=== PATIENT | male | born 1975 | race Caucasian/White ===

== ENCOUNTER 2019-04-16 12:04 | Emergency (ER) | payer OTHER, MEDICAID ==
--- NOTE | 2019-04-16 12:43 | XRAY Report ---
Reason: pain to R index finger Procedure Date: 04/16/2019 Accession Number: [id number] / [id number] Procedure: XR - Finger(s) RT CPT Code: FULL RESULT: EXAM: RIGHT INDEX FINGER RADIOGRAPHY EXAM DATE: 04/16/2019 12:29 PM. CLINICAL HISTORY: Pain R index finger. Hyperextension injury COMPARISON: None. TECHNIQUE: 3 views. FINDINGS: Bones: Normal. No fracture or bone lesion. Joints: Normal. No subluxations. Soft Tissues: Normal. No soft tissue swelling. IMPRESSION: Normal right index finger radiography. [facility]
--- NOTE | 2019-04-16 12:49 | ED Physician Documentation ---
PD HPI UPPER EXT INJURY - Stated complaint Stated Complaint: FINGER INJURY - Chief complaint Chief Complaint: Ext Problem - History obtained from History obtained from: Patient - History of Present Illness Location: Right, Finger (index) Type of injury: Twist Where injury occurred: Work Timing - onset: Yesterday Timing - duration: Days (1) Timing - details: Abrupt onset, Still present Improved by: Rest, Immobilization Worsened by: Moving, Palpating Associated symptoms: Swelling. 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 Review of Systems Constitutional: denies: Fever Respiratory: denies: Cough GI: denies: Vomiting PD PAST MEDICAL HISTORY - Past Surgical History Past Surgical History: Yes Ortho: Other HEENT: Tonsil/Adenoidectomy - Present Medications Home Medications: Ambulatory Orders Medication Instructions Recorded Confirmed Hydrocodone/Acetaminophen 1 tab PRN 12/19/14 12/19/14 [Hydrocodon-Acetaminophn 10-325] Ibuprofen 600 mg PO Q6HR PRN #20 tablet 12/19/14 predniSONE [Deltasone] 40 mg PO DAILY 5 Days tablet 12/19/14 - Allergies Allergies/Adverse Reactions: Allergies Allergy/AdvReac Type Severity Reaction Status Date / Time codeine Allergy Itching Verified 12/19/14 13:06 - Social History Does the pt smoke?: No Smoking Status: Never smoker Does the pt drink ETOH?: Yes Does the pt have substance abuse?: Yes PD ED PE NORMAL - Vitals Vital signs reviewed: Yes (hypertensive ) - General General: Alert and oriented X 3, No acute distress, Well developed/nourished - HEENT HEENT: Atraumatic, PERRL, EOMI - Respiratory Respiratory: No respiratory distress - Derm Derm: Normal color, Warm and dry, No rash - Extremities Extremities: No deformity, Other (There is swelling and point tenderness to the right index finger. The maximal swelling is over the PIP of the right index. There is reduced ROM secondary to pain. ) - Neuro Neuro: Alert and oriented X 3, bus info consultant 2-12 intact, No motor deficit, No sensory deficit, Normal speech Eye Opening: Spontaneous Motor: Obeys Commands Verbal: Oriented GCS Score: 15 - Psych Psych: Normal mood, Normal affect Results - Vitals Vitals: Vital Signs - 24 hr 04/16/19 12:17 Temperature 36.2 C L Heart Rate 72 Respiratory 16 Rate Blood Pressure 137/78 H O2 Saturation 97 Oxygen O2 Source Room air - Rads (name of study) finger Radiology: Prelim report reviewed (Impression normal right and ex finger radiography.), EMP read indepedently, See rad report PD MEDICAL DECISION MAKING - ED course Complexity details: reviewed results, re-evaluated patient, considered differential, d/w patient ED course: 43-year-old male with a sprained right index finger is placed into a volar aluminum splint and his fingers are pao taped we will place him on limited duty of his right hand for 2 weeks. Departure - Departure Disposition: 01 Home, Self Care Clinical Impression: Sprain of right index finger Qualifiers: Encounter type: initial encounter Sprain of finger site: interphalangeal joint Qualified Code(s): S63.630A - Sprain of interphalangeal joint of right index finger, initial encounter Condition: Stable Instructions: ED Sprain Finger Follow-Up: [facility] [Provider Group] Forms: Activity restrictions
[2019-04-16 13:09] VITALS: BP 132/76
== END 2019-04-16 13:08 | disposition home or self-care (01) ==
LOC: ED 12:04
DX: S63.630A Sprain of interphalangeal joint of right index finger, initial encounter (principal); X50.1XXA Overexertion from prolonged static or awkward postures, initial encounter; Y93.89 Activity, other specified; Y99.0 Civilian activity done for income or pay
CPT/HCPCS: 1040M; 73140; 99282; 99283

== ENCOUNTER 2019-04-27 14:08 | Emergency (ER) | payer OTHER, MEDICAID ==
[2019-04-27 14:17] VITALS: BP 164/93
--- NOTE | 2019-04-27 14:22 | ED Physician Documentation ---
History of Present Illness - Stated complaint Stated Complaint: R FINGER NUMBNESS - Chief complaint Chief Complaint: Ext Problem - History obtained from History obtained from: Patient - History of Present Illness Timing: Other (1 1/2 months ago on Mar 20) Pain level max: 0 Pain level now: 0 - Additonal information Additional information: This is a 43-year-old who presents for an L&I claim regarding numbness to the his right middle fingertip. Says a month and a half ago on March 20 he was moving [employer] and he noticed afterward that the very tip of his right middle finger pad was numb and it just has not gone away. He denies that there was any laceration, bruising or swelling. He does not take any prescription medications for any chronic illnesses and denies use of tobacco products. He is never been diagnosed with carpal tunnel syndrome. Denies waking up in the middle of the night in pain. Patient was here a week and a half ago for a different L&I injury to the right index finger and he asked his claim worker if he could just add this numbness onto that claim but was told that he would have to come in and file another L&I injury form. Review of Systems Musculoskeletal: denies: Extremity pain, Joint swelling Neurologic: reports: Numbness (Isolated to the very tip of the right middle finger pad) PD PAST MEDICAL HISTORY - Past Surgical History Past Surgical History: Yes Ortho: Other HEENT: Tonsil/Adenoidectomy - Present Medications Home Medications: Ambulatory Orders Medication Instructions Recorded Confirmed Hydrocodone/Acetaminophen 1 tab PRN 12/19/14 12/19/14 [Hydrocodon-Acetaminophn 10-325] Ibuprofen 600 mg PO Q6HR PRN #20 tablet 12/19/14 predniSONE [Deltasone] 40 mg PO DAILY 5 Days tablet 12/19/14 - Allergies Allergies/Adverse Reactions: Allergies Allergy/AdvReac Type Severity Reaction Status Date / Time codeine Allergy Itching Verified 12/19/14 13:06 - Social History Does the pt smoke?: No Smoking Status: Never smoker Does the pt drink ETOH?: Yes Does the pt have substance abuse?: Yes - Immunizations Immunizations are current?: No PD ED PE NORMAL - Vitals Vital signs reviewed: Yes - General General: Alert and oriented X 3, No acute distress - HEENT HEENT: PERRL - Extremities Extremities: Other (No obvious injury.He does have some callusing Is intact at the DIP PIP and MCP joints of the index, middle and ring fingers of the right hand. Skin thickening to the pads of the index and middle finger. Two-point discrimination is intact and all 5 digits the right hand. He has a negative Phalen's and Tinel's test. Capillary refill is less than 2 seconds on both sides of the finger pad.) - Psych Psych: Normal mood Results - Vitals Vitals: Vital Signs - 24 hr 04/27/19 14:14 Temperature 36.2 C L Heart Rate 74 Respiratory 18 Rate Blood Pressure 164/93 H O2 Saturation 100 Oxygen O2 Source Room air PD MEDICAL DECISION MAKING - ED course Complexity details: reviewed old records, d/w patient ED course: This is a 43-year-old man with complaints of isolated Diminished sensation at the very tip of his right middle finger. His two-point discrimination is intact and there is no obvious sign of injury to the finger. He does have elevated blood pressure today however review of his old records does not reveal that this is a chronic recurrent issue. I do not see indication that he has carpal tunnel syndrome and doubt that there is any intervention that can be done for his symptoms. This was discussed with him. He never followed up regarding the index finger injury and is complaining that it still hurts so he is referred back to the orthopedic surgeon that he was referred to from the emergency department and also given a follow-up for hand surgeon or his company can refer him to an L and I provider for further evaluation. 1453: Nursing staff informed me that patient left before re-saving his discharge paperwork or his L&I claim number. Departure - Departure Disposition: 01 Home, Self Care Clinical Impression: Paresthesia of finger Condition: Good Follow-Up: [facility] [Provider Group] [facility] [Other] Comments: You can follow-up with the orthopedic doctor or hand surgeon or preferred L&I provider for your company for further evaluation as needed. Consult with your L&I claim worker about referral.
== END 2019-04-27 14:48 | disposition home or self-care (01) ==
LOC: ED 14:08
DX: R20.2 Paresthesia of skin (principal); R03.0 Elevated blood-pressure reading, without diagnosis of hypertension
CPT/HCPCS: 1040M; 99281; 99282

== ENCOUNTER 2019-08-05 11:28 | Outpatient (CLI) | payer OTHER ==
--- NOTE | 2019-08-05 15:05 | XRAY Report ---
Reason: RT INDEX FINGER PAIN, INITIAL XRAYS NEG Procedure Date: 08/05/2019 Accession Number: [id number] / [id number] Procedure: XR - Finger(s) RT CPT Code: Final Report FULL RESULT: EXAM: RIGHT 2ND DIGIT RADIOGRAPHY EXAM DATE: 08/05/2019 11:47 AM. CLINICAL HISTORY: Right index finger pain, initial x-rays negative. COMPARISON: FINGER(S) RT 04/16/2019 12:22 PM. TECHNIQUE: 3 views. FINDINGS: Bones: Normal. No fracture or bone lesion. Joints: Mild to moderate degenerative changes of the 1st carpometacarpal articulation. No dislocation. Soft Tissues: Normal. No soft tissue swelling. IMPRESSION: No acute fracture or dislocation. [facility]
== END 2019-08-05 11:29 | disposition home or self-care (01) ==
LOC: DI 11:28
PROVIDERS: ATTEND Family Medicine
DX: M18.11 Unilateral primary osteoarthritis of first carpometacarpal joint, right hand (principal)
CPT/HCPCS: 73140

== ENCOUNTER 2020-04-13 13:36 | Emergency (ER) | payer MEDICAID ==
[2020-04-13 13:46] VITALS: BP 128/71
--- NOTE | 2020-04-13 13:59 | ED Physician Documentation ---
PD HPI UPPER EXT INJURY - Stated complaint Stated Complaint: R HAND INJ - Chief complaint Chief Complaint: Ext Problem - History obtained from History obtained from: Patient - History of Present Illness Location: Right, Finger (middle) Type of injury: Blunt / blow (he struck finger on object yesterday with mild abrasion/lac and some swelling. Has some increased swelling today. No redness nor discharge.) Timing - onset: Yesterday Timing - details: Abrupt onset, Still present Worsened by: Moving, Palpating Associated symptoms: Swelling. No: Weakness, Numbness, Discolored Similar symptoms before: Has not had sx before Review of Systems Constitutional: denies: Fever, Chills Nose: denies: Rhinorrhea / runny nose, Congestion Throat: denies: Sore throat Respiratory: denies: Cough Skin: reports: Abrasion (s) (over the PIP dorsal knuckle.) Neurologic: denies: Focal weakness, Numbness PD PAST MEDICAL HISTORY - Past Medical History Past Medical History: No Endocrine/Autoimmune: None - Past Surgical History Past Surgical History: Yes Ortho: Other HEENT: Tonsil/Adenoidectomy - Present Medications Home Medications: Ambulatory Orders Medication Instructions Recorded Confirmed Hydrocodone/Acetaminophen 1 tab PRN 12/19/14 12/19/14 [Hydrocodon-Acetaminophn 10-325] Ibuprofen 600 mg PO Q6HR PRN #20 tablet 12/19/14 predniSONE [Deltasone] 40 mg PO DAILY 5 Days tablet 12/19/14 - Allergies Allergies/Adverse Reactions: Allergies Allergy/AdvReac Type Severity Reaction Status Date / Time codeine Allergy Itching Verified 12/19/14 13:06 - Social History Does the pt smoke?: No Smoking Status: Never smoker Does the pt drink ETOH?: Yes Does the pt have substance abuse?: Yes - Immunizations Immunizations are current?: No PD ED PE NORMAL - Vitals Vital signs reviewed: Yes - General General: Alert and oriented X 3, No acute distress, Well developed/nourished - Derm Derm: Normal color, Warm and dry - Extremities Extremities: Other (right middle finger with some soft tissue tenderness over the dorsal PIP joint. No FB. Full ROM of the finger against resistance without pain. Some local swelling. No redness nor purulent appearance. ) - Neuro Neuro: Alert and oriented X 3, No motor deficit, No sensory deficit Results - Vitals Vitals: Vital Signs - 24 hr 04/13/20 13:44 Temperature 37.2 C Heart Rate 77 Respiratory 16 Rate Blood Pressure 128/71 O2 Saturation 98 Oxygen O2 Source Room air PD MEDICAL DECISION MAKING - ED course Complexity details: considered differential (mild injury mechanism and good exam. superficial lac. No bony deformity. Not appearing infected. ), d/w patient Departure - Departure Disposition: 01 Home, Self Care Clinical Impression: Abrasion, finger w/o infection Finger contusion Qualifiers: Encounter type: initial encounter Finger: middle finger Damage to nail status: without damage Laterality: right Qualified Code(s): S60.031A - Contusion of right middle finger without damage to nail, initial encounter Condition: Stable Record reviewed to determine appropriate education?: Yes Instructions: ED Abrasion Follow-Up: Bren Saucedo ARNP [Primary Care Provider] - Comments: The finger does not clinically seem like any fracture or significant bony injury. The wound does not appear to go into the joint area. I think it will heal okay without any problems. Watch for signs of infection. Allow the Steri-Strips and glue to remain in place and dry for couple of days or so to protect the wound. Tylenol or ibuprofen if needed for pains. Discharge Date/Time: 04/13/20 14:33
== END 2020-04-13 14:33 | disposition home or self-care (01) ==
LOC: ED 13:36
DX: S60.412A Abrasion of right middle finger, initial encounter (principal); S60.031A Contusion of right middle finger without damage to nail, initial encounter; W22.09XA Striking against other stationary object, initial encounter
CPT/HCPCS: 99282; 99283